=== PATIENT | male | born 1975 ===

== ENCOUNTER → 2025-01-26 15:50 | Outpatient (REF) | payer BC, SELFPAY | LOC: DHSLP 15:50 | PROVIDERS: ATTENDING PHYSICIAN Internal Medicine | DX: G47.33 Obstructive sleep apnea (adult) (pediatric) (principal) | CPT/HCPCS: 95800 ==

== ENCOUNTER 2025-03-21 06:25 | Day surgery (SDC) | payer BC, SELFPAY | END 2025-03-21 14:53 | disposition home or self-care (01) | LOC: GI 06:25 | PROVIDERS: ATTENDING PHYSICIAN Internal Medicine Gastroenterology | DX: Z12.11 Encounter for screening for malignant neoplasm of colon (principal); K64.8 Other hemorrhoids | CPT/HCPCS: G0121 ==